=== PATIENT | male | born 1980 | race Two or more races ===

== ENCOUNTER 2023-02-27 16:20 | Emergency (ER) | payer OTHER ==
[~2023-02-27] VITALS: Ht 177.8 cm; Wt 70.3 kg
[2023-02-27 20:30] VITALS: BP 131/84; TEMP 98.2; O2SAT 98
== END 2023-02-27 20:31 | disposition home or self-care (01) ==
LOC: ER 16:32
DX: K59.00 Constipation, unspecified (principal)

== ENCOUNTER 2024-02-10 15:49 | Inpatient (IN) | payer MEDICARE, OTHER ==
[~2024-02-10] VITALS: Ht 180.3 cm; Wt 76.3 kg
[2024-02-10 20:32] LABS: BASOPHILS % (AUTO) 0.4 % (0.0-2.0); EOSINOPHILS # (AUTO) 0.1 K/uL (0.0-0.7); EOSINOPHILS % (AUTO) 0.5 % (0.0-6.0); HEMATOCRIT 31 % (39-51); HEMOGLOBIN 10.8 g/dL (13.5-17.5); LYMPHOCYTES # (AUTO) 1.6 K/uL (0.8-4.8); LYMPHOCYTES % (AUTO) 15.3 % (20.0-44.0); MEAN CORPUSCULAR HEMOGLOBIN 31 PG (26.0-33.0); MEAN CORPUSCULAR HGB CONC 35 g/dl (31.0-36.0); MEAN CORPUSCULAR VOLUME 88 fL (80-96); MONOCYTES # (AUTO) 1.4 K/uL (0.1-1.30); MONOCYTES % (AUTO) 12.8 % (2.0-12.0); NEUTROPHILS # (AUTO) 7.6 K/uL (1.8-8.9); PLATELET COUNT (AUTO) 365 K/uL (150-450); RED BLOOD CELL COUNT(AUTO) 3.55 MIL/uL (4.5-6.0); RED CELL DISTRIBUTION WIDTH 13.2 % (11.5-15.0); WHITE BLOOD COUNT (AUTO) 10.7 K/uL (4.3-11.0)
[2024-02-10 20:39] LABS: CREATININE 0.7 mg/dL (0.6-1.3); POTASSIUM 4.1 mmol/L (3.5-5.1)
[2024-02-10 20:52] LABS: INR 1.08 (0.91-1.10); PARTIAL THROMBOPLASTIN TIME 34.6 SEC (24.3-34.3); PROTHROMBIN TIME 11.4 SECS (9.2-11.1)
[2024-02-10] MEDS ORDERED: MAG HYDROX/AL HYDROX/SIMETH 30 ML UDC PO PRN (21:30)
[2024-02-10] MEDS ORDERED: MORPHINE SULFATE INJ 2 MG/ML DISP.SYRIN IV PRN (21:30)
[2024-02-10] MEDS ORDERED: ONDANSETRON HCL/PF 4 MG/2 ML VIAL IVP PRN (21:30)
[2024-02-10] MEDS ORDERED: Z GUARD REMEDY 4 OZ OINT TP PRN (21:30)
[2024-02-10] MEDS ORDERED: ZOLPIDEM TARTRATE 5 MG TABLET PO PRN (21:30)
[2024-02-10] MEDS ORDERED: MAGNESIUM HYDROXIDE 30 ML UDC PO PRN (21:30)
[2024-02-10] MEDS ORDERED: ACETAMINOPHEN 325 MG TABLET ONE (22:02)
[2024-02-10] MEDS: ACETAMINOPHEN 325 MG TABLET PO ONE (22:05)
[2024-02-10 22:30] VITALS: BP 112/79; TEMP 99.7; O2SAT 97
[2024-02-10] MEDS: IV NS 0.9% 1,000 ML IV PRN (23:30)
[2024-02-10] MEDS ORDERED: SIME80TA15 PO (23:44)
[2024-02-10] MEDS ORDERED: MIDO10TA PO (23:47)
[2024-02-10] MEDS ORDERED: CETI-108 PO (23:59)
[2024-02-11] MEDS ORDERED: CETI-194 PO (00:06)
[2024-02-11] MEDS ORDERED: SENN-301 PO (00:12)
[2024-02-11] MEDS ORDERED: DOCU250C14 PO (00:45)
[2024-02-11] MEDS: ACETAMINOPHEN 325 MG TABLET PO PRN (03:03)
[2024-02-11 06:13] LABS: BASOPHILS % (AUTO) 0.3 % (0.0-2.0); EOSINOPHILS # (AUTO) 0.1 K/uL (0.0-0.7); EOSINOPHILS % (AUTO) 0.6 % (0.0-6.0); HEMATOCRIT 30 % (39-51); HEMOGLOBIN 10.2 g/dL (13.5-17.5); LYMPHOCYTES # (AUTO) 1.8 K/uL (0.8-4.8); LYMPHOCYTES % (AUTO) 17.8 % (20.0-44.0); MEAN CORPUSCULAR HEMOGLOBIN 30 PG (26.0-33.0); MEAN CORPUSCULAR HGB CONC 34 g/dl (31.0-36.0); MEAN CORPUSCULAR VOLUME 88 fL (80-96); MONOCYTES % (AUTO) 10.5 % (2.0-12.0); NEUTROPHILS % (AUTO) 70.8 % (43.0-81.0); PLATELET COUNT (AUTO) 357 K/uL (150-450); RED BLOOD CELL COUNT(AUTO) 3.38 MIL/uL (4.5-6.0); RED CELL DISTRIBUTION WIDTH 13.2 % (11.5-15.0); WHITE BLOOD COUNT (AUTO) 9.8 K/uL (4.3-11.0)
[2024-02-11 06:27] LABS: CALCIUM, SERUM 8.7 mg/dL (8.5-10.1); CREATININE 0.8 mg/dL (0.6-1.3); MAGNESIUM 1.7 mg/dL (1.8-2.4); PHOSPHORUS 3.1 mg/dL (2.5-4.9); POTASSIUM 3.5 mmol/L (3.5-5.1)
[2024-02-11 08:00] VITALS: BP 130/101; TEMP 98.3; O2SAT 99
[2024-02-11] MEDS: Magnesium 1GM/D5W 100ML PREMIX 100 ML IV SCH (08:21)
[2024-02-11] MEDS: PANTOPRAZOLE 40 MG TABLET.DR PO SCH (08:21)
[2024-02-11] MEDS: MIDODRINE HCL (5MG) 5 MG TABLET PO SCH (09:00)
[2024-02-11 09:47] LABS: THYROID STIMULATING HORMONE 1.73 uIU/mL (0.358-3.74)
[2024-02-11] MEDS: DOCUSATE SODIUM 250 MG CAPSULE PO SCH (11:00)
[2024-02-11] MEDS: SIMETHICONE 80 MG TAB.CHEW PO SCH (12:00)
[2024-02-11 16:00] VITALS: BP 117/70; TEMP 99.8; O2SAT 100
[2024-02-11] MEDS: SENNOSIDES 8.6 MG TABLET PO SCH (17:26)
[2024-02-11] MEDS: FLUTICASONE PROPIONATE 16 GM BOTTLE NS SCH (17:26)
[2024-02-11 20:00] VITALS: BP 108/74; TEMP 98.4; O2SAT 99
[2024-02-11] MEDS ORDERED: CETI-90 PO (20:03)
[2024-02-11 20:05] VITALS: BP 108/74; TEMP 98.4; O2SAT 99
[2024-02-11] MEDS: cetrizine 10 MG TABLET PO PRN (20:25)
[2024-02-12 04:00] VITALS: BP 103/63; TEMP 98.2; O2SAT 98
[2024-02-12 04:36] VITALS: BP 103/63; TEMP 98.2; O2SAT 98
[2024-02-12 05:58] LABS: BASOPHILS % (AUTO) 0.3 % (0.0-2.0); EOSINOPHILS # (AUTO) 0.1 K/uL (0.0-0.7); EOSINOPHILS % (AUTO) 0.6 % (0.0-6.0); HEMATOCRIT 29 % (39-51); HEMOGLOBIN 10.2 g/dL (13.5-17.5); LYMPHOCYTES # (AUTO) 1.8 K/uL (0.8-4.8); LYMPHOCYTES % (AUTO) 20.4 % (20.0-44.0); MEAN CORPUSCULAR HEMOGLOBIN 31 PG (26.0-33.0); MEAN CORPUSCULAR HGB CONC 35 g/dl (31.0-36.0); MEAN CORPUSCULAR VOLUME 87 fL (80-96); MONOCYTES % (AUTO) 11.5 % (2.0-12.0); NEUTROPHILS % (AUTO) 67.2 % (43.0-81.0); PLATELET COUNT (AUTO) 332 K/uL (150-450); RED BLOOD CELL COUNT(AUTO) 3.31 MIL/uL (4.5-6.0)
[2024-02-12 06:06] LABS: INR 1.04 (0.91-1.10); PARTIAL THROMBOPLASTIN TIME 34.5 SEC (24.3-34.3)
[2024-02-12 06:20] LABS: ALBUMIN 2.9 g/dL (3.4-5.0); BILIRUBIN,TOTAL 0.6 mg/dL (0.2-1.0); CREATININE 0.8 mg/dL (0.6-1.3); MAGNESIUM 2.2 mg/dL (1.8-2.4); PHOSPHORUS 3.1 mg/dL (2.5-4.9); TOTAL PROTEIN, SERUM 7.3 g/dL (6.4-8.2)
[2024-02-12 08:00] VITALS: BP 84/54; TEMP 98.3; O2SAT 99
[2024-02-12] MEDS: IV NS 0.9% 500 ML IV ONE (08:52)
[2024-02-12] MEDS ORDERED: BUPIVACAINE 0.5 % PF 150 MG/30 ML VIAL ONE (09:05)
[2024-02-12] MEDS ORDERED: VANCOMYCIN 1 GM VIAL ONE (09:06)
[2024-02-12] MEDS ORDERED: ROCURONIUM BROMIDE 50 MG/5 ML ONE (09:08)
[2024-02-12] MEDS ORDERED: FENTANYL PF 100MCG/2ML AMPUL ONE (09:08)
[2024-02-12] MEDS ORDERED: ANESTHESIA TRAY IN PYXIS 1 EA TRAY MC ONE (11:16)
[2024-02-12] MEDS ORDERED: ONDANSETRON HCL/PF 4 MG/2 ML VIAL IVP PRN (11:30)
[2024-02-12] MEDS: IV D5/0.45 NACL W/20 MEQ KCL 1L IV PRN (13:28)
[2024-02-12 16:00] VITALS: BP 95/60; TEMP 98.6; O2SAT 98
[2024-02-12] MEDS: ANCEF 1 GM/50 ML D5W IV SCH (18:30)
[2024-02-12 20:00] VITALS: BP 116/65; TEMP 98.2; O2SAT 99
[2024-02-12 20:13] VITALS: BP 116/65; TEMP 98.2; O2SAT 99
[2024-02-13] MEDS ORDERED: IV PREMIX D5 1/2NS + KCL 1,000 ML IV ONE (01:17)
[2024-02-13 06:13] LABS: BASOPHILS % (AUTO) 0.3 % (0.0-2.0); EOSINOPHILS # (AUTO) 0.1 K/uL (0.0-0.7); EOSINOPHILS % (AUTO) 0.6 % (0.0-6.0); HEMATOCRIT 27 % (39-51); HEMOGLOBIN 9.3 g/dL (13.5-17.5); LYMPHOCYTES # (AUTO) 2.1 K/uL (0.8-4.8); LYMPHOCYTES % (AUTO) 18.7 % (20.0-44.0); MEAN CORPUSCULAR HEMOGLOBIN 30 PG (26.0-33.0); MEAN CORPUSCULAR HGB CONC 35 g/dl (31.0-36.0); MEAN CORPUSCULAR VOLUME 87 fL (80-96); MONOCYTES # (AUTO) 1.3 K/uL (0.1-1.30); MONOCYTES % (AUTO) 12.2 % (2.0-12.0); NEUTROPHILS # (AUTO) 7.6 K/uL (1.8-8.9); NEUTROPHILS % (AUTO) 68.2 % (43.0-81.0); PLATELET COUNT (AUTO) 392 K/uL (150-450); RED BLOOD CELL COUNT(AUTO) 3.08 MIL/uL (4.5-6.0); RED CELL DISTRIBUTION WIDTH 13.2 % (11.5-15.0); WHITE BLOOD COUNT (AUTO) 11.1 K/uL (4.3-11.0)
[2024-02-13 06:58] LABS: CALCIUM, SERUM 8.9 mg/dL (8.5-10.1); CREATININE 0.8 mg/dL (0.6-1.3); POTASSIUM 4.1 mmol/L (3.5-5.1)
[2024-02-13 08:00] VITALS: BP 109/72; TEMP 100.1; O2SAT 98
[2024-02-13 20:00] VITALS: BP 134/84; TEMP 98.4; O2SAT 100
[2024-02-14 06:48] LABS: BASOPHILS % (AUTO) 0.4 % (0.0-2.0); EOSINOPHILS # (AUTO) 0.2 K/uL (0.0-0.7); HEMATOCRIT 27 % (39-51); HEMOGLOBIN 9.8 g/dL (13.5-17.5); LYMPHOCYTES % (AUTO) 19.8 % (20.0-44.0); MEAN CORPUSCULAR HEMOGLOBIN 32 PG (26.0-33.0); MEAN CORPUSCULAR HGB CONC 36 g/dl (31.0-36.0); MEAN CORPUSCULAR VOLUME 88 fL (80-96); MONOCYTES % (AUTO) 9.9 % (2.0-12.0); NEUTROPHILS # (AUTO) 6.8 K/uL (1.8-8.9); NEUTROPHILS % (AUTO) 67.9 % (43.0-81.0); PLATELET COUNT (AUTO) 423 K/uL (150-450); RED CELL DISTRIBUTION WIDTH 13.3 % (11.5-15.0)
[2024-02-14 07:30] VITALS: BP 94/60; TEMP 99.1; O2SAT 98
[2024-02-14 07:51] LABS: ALBUMIN 2.7 g/dL (3.4-5.0); BILIRUBIN,TOTAL 0.6 mg/dL (0.2-1.0); CALCIUM, SERUM 8.9 mg/dL (8.5-10.1); CREATININE 0.7 mg/dL (0.6-1.3); MAGNESIUM 2.2 mg/dL (1.8-2.4); PHOSPHORUS 3.6 mg/dL (2.5-4.9); POTASSIUM 4.1 mmol/L (3.5-5.1); TOTAL PROTEIN, SERUM 7.2 g/dL (6.4-8.2)
[2024-02-14 08:28] VITALS: BP 94/60
[2024-02-14 13:50] VITALS: TEMP 99
== END 2024-02-14 16:00 | disposition home health service (06) | DRG 481 ==
LOC: ER 15:55 → MED 22:17
PROVIDERS: ADMIT Nurse Practitioner Family
PROC: 0QS906Z Reposition Left Femoral Shaft with Intramedullary Internal Fixation Device, Open Approach (ICD-10-PCS; principal; 2024-02-12)
DX: S72.332A Displaced oblique fracture of shaft of left femur, initial encounter for closed fracture (principal); D68.59 Other primary thrombophilia; E87.1 Hypo-osmolality and hyponatremia; G82.20 Paraplegia, unspecified; M19.90 Unspecified osteoarthritis, unspecified site; D63.8 Anemia in other chronic diseases classified elsewhere; E83.42 Hypomagnesemia; W34.00XS Accidental discharge from unspecified firearms or gun, sequela; X58.XXXA Exposure to other specified factors, initial encounter; Y93.89 Activity, other specified; Y92.89 Other specified places as the place of occurrence of the external cause; I95.9 Hypotension, unspecified
CPT/HCPCS: 36415; 73552; 73564-TC; 80048-TC; 80053-TC; 80061-TC; 82728-TC; 83540-TC; 83735-TC; 84100-TC; 84439-TC; 84443-TC; 85025-TC; 85610-TC; 85730-TC; 86850-TC; 93307-TC; 97110-TC; 97530-TC; A4223; A6209; C1713; G0378; J0690; J1100; J2405; J2704; J3010; J3370; J3475; J3480; J3490; J7030; J7050; J7060